=== PATIENT | male | born 1945 | race Caucasian/White ===

== ENCOUNTER 2020-08-12 05:37 | Outpatient (CLI) | payer MEDICARE ==
[~2020-08-12] VITALS: Ht 175.3 cm; Wt 96.8 kg
[2020-08-12] MEDS ORDERED: AZIL80TA PO (13:10)
[2020-08-12] MEDS ORDERED: METF-397 PO (13:10)
[2020-08-12] MEDS ORDERED: AMLO10TA7 PO (13:10)
[2020-08-12] MEDS ORDERED: VARD10TA19 PO (13:10)
[2020-08-12] MEDS ORDERED: PROP80CA55 PO (13:10)
== END 2020-08-12 13:13 | disposition home or self-care (01) ==
LOC: PREOP 05:37
PROVIDERS: ATTEND Surgery
DX: Z01.818 Encounter for other preprocedural examination (principal)

== ENCOUNTER 2020-08-19 07:05 | Day surgery (SDC) | payer MEDICARE ==
[~2020-08-19] VITALS: Ht 175.3 cm; Wt 96.8 kg
[~2020-08-19 07:05] MED LIST: AMLO10TA7 PO; AZIL80TA PO; LACTATED RINGERS 1,000 ML IV ONE; METF-397 PO; PROP80CA55 PO; VARD10TA19 PO
[2020-08-19 07:21] VITALS: BP 152/90
[2020-08-19] MEDS ORDERED: MIDAZOLAM 2 MG/2 ML (VERSED) VIAL ONE (07:24)
[2020-08-19] MEDS ORDERED: PROPOFOL INJECTION 50 ML IV ONE (07:25)
[2020-08-19] MEDS ORDERED: LACTATED RINGERS 1,000 ML IV SCH (07:30)
--- NOTE | 2020-08-19 08:18 | Progress Note-Post Operative ---
Post-Operative Progess Note Surgeon (s)/Service Specialist (s) Surgeon STEFANO LEO DO Service Specialist: na Pre-Operative Diagnosis screening colon Post-Operative Diagnosis sigmoid polyp Procedure & Operative Findings Date of Procedure 08/19/20 Procedure Performed/Findings colonoscopy c snare polypectomy Anesthesia Type per clerk travel reservations Estimated Blood Loss Estimated blood loss (mL): none Specimens/Packing Specimens Removed sigmoid polyp STEFANO LEO DO Aug 19, 2020 08:18
[2020-08-19 08:20] VITALS: BP 92/53
--- NOTE | 2020-08-19 08:20 | Discharge Inst-Simple/Standard ---
Discharge Inst-Standard Patient Instructions/Follow Up Plan of Care/Instructions/FU: 2 weeks Supriya Activity as Tolerated: Yes Discharge Diet: Regular Diet STEFANO LEO DO Aug 19, 2020 08:20
[2020-08-19 08:25] VITALS: BP 94/55
[2020-08-19 08:29] VITALS: BP 88/55
[2020-08-19 08:45] VITALS: BP 112/73
[2020-08-19 09:00] VITALS: BP 112/73
--- NOTE | 2020-08-19 11:24 | Anesthesia-General Post-Op ---
MAC Patient Condition Mental Status/LOC: Same as Preop Cardiovascular: Satisfactory Nausea/Vomiting: Absent Respiratory: Satisfactory Pain: Controlled Complications: Absent Post Op Complications Complications None Follow Up Care/Instructions Patient Instructions None needed. Anesthesiology Discharge Order Discharge Order Patient is doing well, no complaints, stable vital signs, no apparent adverse anesthesia problems. No complications reported per nursing. LISA GROVES CRNA Aug 19, 2020 11:24
--- NOTE | 2020-08-19 12:50 | OPERATIVE REPORT ---
DATE OF SERVICE: PREOPERATIVE DIAGNOSIS: Screening colonoscopy. POSTOPERATIVE DIAGNOSIS: Sigmoid colon polyp. PROCEDURE: Colonoscopy with snare polypectomy. SURGEON: Stefano Epps DO ANESTHESIA: Per AFFILIATE MARKETING MANAGER. ESTIMATED BLOOD LOSS: None. COMPLICATIONS: None. INDICATIONS: The patient is a 75-year-old male needing screening colonoscopy. He understands risks and benefits of procedure and wished to proceed with procedure. Consent was signed in the chart. DESCRIPTION OF PROCEDURE: The patient was taken to the endoscopy suite, placed in left lateral recumbent position. Timeout was performed. Digital rectal exam was performed. There were no palpable polyps, masses or ulcerations. Scope was inserted in the rectum, advanced all the way to cecum with minimal difficulty. Prep was adequate. Scope was then slowly retracted back. There were no polyps, masses or ulcerations of the cecum, ascending, transverse and descending colon. In the sigmoid colon, a small polyp was present, which snare polypectomy was performed. Scope was then continuously retracted back until in the rectum, it was also retroflexed noting no other pathology except for some internal hemorrhoids. Scope was returned to its normal position, slowly withdrawn until completely removed. The patient tolerated procedure well without any complications. He was taken to recovery room in stable condition. RECOMMENDATIONS: The patient if any issues should be reevaluated at that time. Otherwise, I do not feel there is need for any further screening colonoscopy. The patient will follow up on pathology. Job ID: [id number] DocumentID: [id number] Dictated Date: 08/19/2020 08:23:05 Paring Machine Operator Date: 08/19/2020 12:49:28 Dictated By: STEFANO EPPS DO
== END 2020-08-19 09:00 | disposition home or self-care (01) ==
LOC: ENDO 07:05
PROVIDERS: ATTEND Surgery
DX: Z12.11 Encounter for screening for malignant neoplasm of colon (principal); D12.5 Benign neoplasm of sigmoid colon; K64.8 Other hemorrhoids; I10 Essential (primary) hypertension; E11.9 Type 2 diabetes mellitus without complications; Z79.84 Long term (current) use of oral hypoglycemic drugs; Z79.899 Other long term (current) drug therapy; Z88.2 Allergy status to sulfonamides
CPT/HCPCS: 88305

== ENCOUNTER → 2021-12-10 | Outpatient (CLI) | payer MEDICARE ==
[~2021-12-10] MED LIST changes: +AMLO-251 PO; -AMLO10TA7 PO; -LACTATED RINGERS 1,000 ML IV ONE
== END ==
LOC: LABNPT 08:35
DX: Z20.822 Contact with and (suspected) exposure to COVID-19 (principal)

== ENCOUNTER → 2021-12-10 | Outpatient (CLI) | payer MEDICARE | LOC: LABNPT 08:40 | DX: Z01.812 Encounter for preprocedural laboratory examination (principal); Z20.822 Contact with and (suspected) exposure to COVID-19 | CPT/HCPCS: 87635 ==

== ENCOUNTER 2021-12-12 19:39 | Outpatient (CLI) | payer MEDICARE, OTHER | END 2021-12-13 05:05 | disposition home or self-care (01) | LOC: SLEEP 19:39 | PROVIDERS: ATTEND Internal Medicine | DX: G47.10 Hypersomnia, unspecified (principal); I10 Essential (primary) hypertension | CPT/HCPCS: 95810 ==